=== PATIENT | female | born 1980 | race Caucasian/White ===

== ENCOUNTER 2024-08-16 17:28 | Outpatient (CLI) | payer MEDICARE, MEDICAID, SELFPAY | END 2024-08-16 17:29 | disposition home or self-care (01) | LOC: NFLDREF 08-19 12:29 | PROVIDERS: PCP Physician Assistant Medical; Referring Provider Physician Assistant Medical; Visit Provider Nurse Practitioner Family | DX: R82.90 Unspecified abnormal findings in urine (principal); R32 Unspecified urinary incontinence | CPT/HCPCS: 87086 ==